=== PATIENT | female | born 1965 | race Caucasian/White ===

== ENCOUNTER 2017-10-02 17:31 | Emergency (ER) | payer BC ==
[2017-10-02 17:44] VITALS: BP 130/76; PULSE 105; TEMP 98; BMI 25.3
--- NOTE | 2017-10-02 18:14 | PDOC ---
History of Present Illness - General Chief Complaint: Laceration Stated Complaint: LACERATION Time Seen by Provider: 10/02/17 17:59 History Source: Patient Exam Limitations: No Limitations - History of Present Illness Initial Comments: 10/02/17 18:08 52 yr female with laceration to right inner wrist after sustaining puncture wound from wine glass that broke. Past History - Past Medical History Allergies/Adverse Reactions: Allergies Allergy/AdvReac Type Severity Reaction Status Date / Time No Known Allergies Allergy Verified 10/02/17 17:46 Home Medications: Ambulatory Orders NK [No Known Home Medication] 10/02/17 Asthma: Yes COPD: No - Surgical History GI Surgery: Yes (2011) - Suicide/Smoking/Psychosocial Hx Smoking History: Current every day smoker Have you smoked in the past 12 months: Yes Number of Cigarettes Smoked Daily: 15 Information on smoking cessation initiated: Yes 'Breaking Loose' booklet given: 10/02/17 Hx Alcohol Use: No Drug/Substance Use Hx: No Substance Use Type: Alcohol *Physical Exam - Vital Signs Last Vital Signs Temp Pulse Resp BP Pulse Ox 98 F 105 H 22 130/76 100 10/02/17 17:37 10/02/17 17:37 10/02/17 17:37 10/02/17 17:37 10/02/17 17:37 - Physical Exam General Appearance: Yes: Nourished, Appropriately Dressed HEENT: positive: EOMI, AB Neck: positive: Supple Respiratory/Chest: positive: Lungs Clear, Normal Breath Sounds Cardiovascular: positive: Regular Rhythm, Regular Rate Gastrointestinal/Abdominal: positive: Normal Bowel Sounds, Soft Lymphatic: negative: Adenopathy Musculoskeletal: positive: Normal Inspection Extremity: positive: Normal Capillary Refill, Normal Inspection, Normal Range of Motion Integumentary: positive: Normal Color, Dry, Warm, Other (right inner wrist with 0.5cm puncture wound no active bleeding, nv intact FROM ) Neurologic: positive: Fully Oriented, Alert, Normal Mood/Affect, Normal Response , Motor Strength 5/5 Procedures - Laceration/Wound Repair Right Posterior Wrist Wound Length: to 2.5 cm Wound Explored: clean Wound's Depth, Shape: linear (puncutre 0.5cm superficial ) Irrigated w/ Saline: Yes Betadine Prep: Yes Wound Repaired With: Steri-strips, Dermabond Sterile Dressing Applied: Yes Medical Decision Making - Medical Decision Making 10/02/17 18:09 cc: right inner wrist with puncture wound 0.5cm on broken wine glass, bleeding controlled SKIN DRIER with pressure dressing nv intact pt denies numbness or tingling has FROM of the hand, wrist and all digits on the right hand wound has been irrigated and closed with dermabond glue and steristrips pt and her agrees with the treatment plan all questions asked and answered. *DC/Admit/Observation/Transfer Diagnosis at time of Disposition: Laceration of right wrist Qualifiers: Encounter type: initial encounter Qualified Code(s): S61.511A - Laceration without foreign body of right wrist, initial encounter - Discharge Dispostion Disposition: HOME Condition at time of disposition: Improved - Referrals Referrals: Arabella Ladd [Primary Care Provider] - Brant Robert MD [Staff Physician] - - Patient Instructions Printed Discharge Instructions: DI for Laceration Repair Additional Instructions: keep clean and dry remove the bandage in 48hrs keep dry the steri strips will peel off in about 3-5 days, do not pick them off, you can trim the edges if they start to peel up the glue will peel off in about 7 days do not pick the glue do not cover with lotion or ointment you may get wet briefly in the shower in the next 48hrs please follow with a hand surgeon if any pain, numbness tingling or any other concerns - Post Discharge Activity
== END 2017-10-02 18:39 | disposition home or self-care (01) ==
LOC: JER 17:31 → JERFT 17:31
PROC: 0HQDXZZ Repair Right Lower Arm Skin, External Approach (ICD-10-PCS; principal; 2017-10-02)
DX: S61.511A Laceration without foreign body of right wrist, initial encounter (principal); W25.XXXA Contact with sharp glass, initial encounter; Y93.89 Activity, other specified; Y92.89 Other specified places as the place of occurrence of the external cause; Y99.8 Other external cause status
CPT/HCPCS: 99281-25